=== PATIENT | female | born 1990 | race Caucasian/White ===

== ENCOUNTER 2023-06-29 19:25 | Outpatient (CLI) | payer BC ==
[2023-06-29] MEDS ORDERED: ONDANSETRON 4 MG/2 ML VIAL IVP STA (20:18)
[2023-06-29] MEDS ORDERED: ACETAMINOPHEN IV (For NPO) 1,000 MG in EMPTY BAG 1 BAG IVPB STA (20:18)
[2023-06-29] MEDS: LACTATED RINGERS 1,000 ML IV SCH ×2 (20:30→21:30)
[2023-06-29 20:42] LABS: Appearance,Urine Clear (Clear); Bilirubin,Urine Negative (Negative); Blood,Urine Negative (Negative); Color,Urine Light Yellow; Glucose,Urine (UA) 4+ (Negative); Leukocyte Esterase,Urine Negative (Negative); Nitrite,Urine Negative (Negative); PH, Urine 5.5 (5.0-8.0); Protein,Urine Trace (Negative); Urobilinogen,Urine <2.0 mg/dL (<2.0)
[2023-06-29 20:48] LABS: Ketones,Urine 4+ (Negative)
[2023-06-29] MEDS ORDERED: LACTATED RINGERS 1,000 ML IV SCH (21:00)
[2023-06-30] MEDS: LACTATED RINGERS 1,000 ML IV SCH (00:53)
[2023-06-30 01:11] VITALS: BP 122/70; PULSE 103; RESP 18; TEMP 97.8
== END 2023-06-30 00:35 | disposition home or self-care (01) ==
LOC: FBPOP 19:25
PROVIDERS: ATTEND Obstetrics & Gynecology Obstetrics
DX: O21.9 Vomiting of pregnancy, unspecified (principal); O24.112 Pre-existing type 2 diabetes mellitus, in pregnancy, second trimester; Z3A.27 27 weeks gestation of pregnancy; Z79.4 Long term (current) use of insulin
CPT/HCPCS: 99214; 96361; 96365; 96375; 81003; J2405; J0131; 96374